=== PATIENT | female | born 1940 | race Hispanic/Latino ===

== ENCOUNTER 2019-06-04 19:49 | Emergency (ER) | payer MEDICARE ==
[~2019-06-04 19:49] MED LIST: DONE5TAB33 PO; FOLI0.4T2 PO; GLIP5TAB11 PO; LISI40TA4 PO; METF-444 PO; NAPR220T57 PO; SIMV40TA59 PO; VALS160T29 PO
[2019-06-04 22:01] LABS: BASOPHILS % (AUTO) 0.6 % (0.0-5.0); EOSINOPHILS % (AUTO) 1.1 % (0.0-8.0); HEMATOCRIT 33.6 % (36-48); LYMPHOCYTES % (AUTO) 31.1 % (21.0-51.0); MEAN CORPUSCULAR HEMOGLOBIN 29.4 pg (27.0-33.0); MEAN CORPUSCULAR VOLUME 89.1 fL (79-99); MONOCYTES % (AUTO) 7.4 % (3.0-13.0); NEUTROPHILS % (AUTO) 59.5 % (40.0-77.0); PLATELET COUNT (AUTO) 267 K/uL (130-400); RED BLOOD CELL COUNT(AUTO) 3.77 MIL/uL (4.00-5.50); RED CELL DISTRIBUTION WIDTH 14.7 % (11.0-15.5); WHITE BLOOD COUNT (AUTO) 6.2 K/uL (4.8-10.8)
[2019-06-04 22:13] LABS: CREATININE 1.9 mg/dL (0.5-1.5); POTASSIUM 5.4 mmol/L (3.5-5.1)
[2019-06-04 22:17] LABS: ALBUMIN 3.5 g/dL (3.5-5.0); BILIRUBIN,TOTAL 0.3 mg/dL (0.2-1.0); TOTAL PROTEIN, SERUM 7.1 g/dL (6.0-8.3)
[2019-06-04 22:51] LABS: APPEARANCE,URINE Clear (CLEAR); BILIRUBIN,URINE Negative (NEGATIVE); COLOR,URINE Yellow (YELLOW); GLUCOSE, URINE (UA) >=1000 mg/dL (NEGATIVE); KETONES,URINE Negative (NEGATIVE); LEUKOCYTE ESTERASE ,URINE Small (NEGATIVE); NITRATE,URINE Negative (NEGATIVE); OCCULT BLOOD,URINE Negative (NEGATIVE); PROTEIN,URINE Negative (NEGATIVE); UROBILINOGEN,URINE 0.2 mg/dL (0.2-1.0)
[2019-06-04 23:06] LABS: BACTERIA,URINE Few /HPF (None Seen); MUCUS,URINE Moderate LPF (None Seen); RBC,URINE 0-1 /HPF (0-1); SQUAMOUS EPITHELIAL CELL,UR Moderate /HPF (0-2)
== END 2019-06-05 02:08 | disposition home or self-care (01) ==
LOC: EDH 19:49
DX: K85.90 Acute pancreatitis without necrosis or infection, unspecified (principal); R51 Headache; N39.0 Urinary tract infection, site not specified; I10 Essential (primary) hypertension; E11.9 Type 2 diabetes mellitus without complications; J45.909 Unspecified asthma, uncomplicated; Z87.891 Personal history of nicotine dependence
CPT/HCPCS: 36415; 70450; 80053; 81001; 82550; 83690; 84484; 85025; 93005

== ENCOUNTER 2019-07-04 19:30 | Emergency (ER) | payer MEDICARE ==
[2019-07-04] MEDS ORDERED: ONDANSETRON HCL 4 MG/2 ML VIAL ONE (19:46)
[2019-07-04] MEDS ORDERED: SODIUM CHLORIDE 0.9% 1000ML 1,000 ML IV ONE (19:46)
[2019-07-04 19:53] LABS: BASOPHILS % (AUTO) 0.6 % (0.0-5.0); EOSINOPHILS % (AUTO) 0.7 % (0.0-8.0); HEMATOCRIT 30.7 % (36-48); LYMPHOCYTES % (AUTO) 29.5 % (21.0-51.0); MEAN CORPUSCULAR HEMOGLOBIN 29.8 pg (27.0-33.0); MEAN CORPUSCULAR HGB CONC 31.9 g/dL (32.0-36.0); MEAN CORPUSCULAR VOLUME 93.3 fL (79-99); NEUTROPHILS % (AUTO) 60.5 % (40.0-77.0); PLATELET COUNT (AUTO) 259 K/uL (130-400); RED BLOOD CELL COUNT(AUTO) 3.29 MIL/uL (4.00-5.50); RED CELL DISTRIBUTION WIDTH 14.8 % (11.0-15.5); WHITE BLOOD COUNT (AUTO) 7.3 K/uL (4.8-10.8)
[2019-07-04 20:07] LABS: CREATININE 2.2 mg/dL (0.5-1.5); POTASSIUM 4.8 mmol/L (3.5-5.1)
[2019-07-04 20:12] LABS: ALBUMIN 3.1 g/dL (3.5-5.0); BILIRUBIN,TOTAL 0.2 mg/dL (0.2-1.0); TOTAL PROTEIN, SERUM 6.5 g/dL (6.0-8.3)
[2019-07-04 22:33] LABS: APPEARANCE,URINE Cloudy (CLEAR); BILIRUBIN,URINE Negative (NEGATIVE); COLOR,URINE Yellow (YELLOW); GLUCOSE, URINE (UA) >=1000 mg/dL (NEGATIVE); KETONES,URINE Negative (NEGATIVE); LEUKOCYTE ESTERASE ,URINE Trace (NEGATIVE); NITRATE,URINE Negative (NEGATIVE); OCCULT BLOOD,URINE Negative (NEGATIVE); PROTEIN,URINE Negative (NEGATIVE); UROBILINOGEN,URINE 0.2 mg/dL (0.2-1.0)
[2019-07-04 22:46] LABS: AMORPHOUS SEDIMENT,UR Few /LPF (None Seen); BACTERIA,URINE None Seen /HPF (None Seen); RBC,URINE None Seen /HPF (0-1); SQUAMOUS EPITHELIAL CELL,UR Rare /HPF (0-2); WBC,URINE 0-1 /HPF (0-1); YEAST,URINE BUDDING Few /HPF (None Seen)
== END 2019-07-05 00:36 | disposition home or self-care (01) ==
LOC: EDH 19:30
DX: K52.9 Noninfective gastroenteritis and colitis, unspecified (principal); K57.30 Diverticulosis of large intestine without perforation or abscess without bleeding; E11.22 Type 2 diabetes mellitus with diabetic chronic kidney disease; I12.9 Hypertensive chronic kidney disease with stage 1 through stage 4 chronic kidney disease, or unspecified chronic kidney disease; N18.9 Chronic kidney disease, unspecified; F03.90 Unspecified dementia, unspecified severity, without behavioral disturbance, psychotic disturbance, mood disturbance, and anxiety; J45.909 Unspecified asthma, uncomplicated; Z90.710 Acquired absence of both cervix and uterus; Z87.891 Personal history of nicotine dependence
CPT/HCPCS: 36415; 74176; 80053; 81001; 82550; 84484; 85025; 93005; 96361; 96374; 99285; J2405; J7030

== ENCOUNTER 2019-08-06 20:20 | Emergency (ER) | payer MEDICARE ==
[2019-08-06] MEDS ORDERED: ACETAMINOPHEN EXTRA STRENGTH 500 MG TABLET ONE (20:39)
[2019-08-06 21:08] LABS: BASOPHILS % (AUTO) 0.5 % (0.0-5.0); EOSINOPHILS % (AUTO) 0.2 % (0.0-8.0); HEMATOCRIT 32.8 % (36-48); MEAN CORPUSCULAR HEMOGLOBIN 30.6 pg (27.0-33.0); MEAN CORPUSCULAR HGB CONC 32.9 g/dL (32.0-36.0); MEAN CORPUSCULAR VOLUME 92.9 fL (79-99); MONOCYTES % (AUTO) 6.1 % (3.0-13.0); NEUTROPHILS % (AUTO) 78.5 % (40.0-77.0); PLATELET COUNT (AUTO) 294 K/uL (130-400); RED BLOOD CELL COUNT(AUTO) 3.53 MIL/uL (4.00-5.50); WHITE BLOOD COUNT (AUTO) 8.3 K/uL (4.8-10.8)
[2019-08-06 21:25] LABS: CREATININE 2.3 mg/dL (0.5-1.5); POTASSIUM 4.9 mmol/L (3.5-5.1)
[2019-08-06 21:29] LABS: ALBUMIN 3.3 g/dL (3.5-5.0); BILIRUBIN,TOTAL 0.2 mg/dL (0.2-1.0); TOTAL PROTEIN, SERUM 6.7 g/dL (6.0-8.3)
[2019-08-06 21:44] LABS: INR 0.99 (0.85-1.15); PARTIAL THROMBOPLASTIN TIME 25.4 SEC (26.3-35.5); PROTHROMBIN TIME 10.7 SEC (9.6-11.6)
[2019-08-06] MEDS ORDERED: CEFTRIAXONE SODIUM 1 GM ONE (21:51)
[2019-08-06 22:49] LABS: APPEARANCE,URINE Clear (CLEAR); BILIRUBIN,URINE Negative (NEGATIVE); COLOR,URINE Yellow (YELLOW); GLUCOSE, URINE (UA) >=1000 mg/dL (NEGATIVE); KETONES,URINE Negative (NEGATIVE); LEUKOCYTE ESTERASE ,URINE Small (NEGATIVE); NITRATE,URINE Positive (NEGATIVE); OCCULT BLOOD,URINE Negative (NEGATIVE); PROTEIN,URINE Negative (NEGATIVE); UROBILINOGEN,URINE 0.2 mg/dL (0.2-1.0)
[2019-08-06 23:11] LABS: BACTERIA,URINE Many /HPF (None Seen); RBC,URINE 0-1 /HPF (0-1); YEAST,URINE BUDDING Moderate /HPF (None Seen)
== END 2019-08-06 22:48 | disposition home or self-care (01) ==
LOC: EDH 20:20
DX: N39.0 Urinary tract infection, site not specified (principal); N28.9 Disorder of kidney and ureter, unspecified; E86.0 Dehydration; D63.1 Anemia in chronic kidney disease; E11.9 Type 2 diabetes mellitus without complications; I10 Essential (primary) hypertension; J45.909 Unspecified asthma, uncomplicated; Z90.49 Acquired absence of other specified parts of digestive tract; Z90.710 Acquired absence of both cervix and uterus
CPT/HCPCS: 36415; 71045; 74176; 80053; 81001; 82150; 82550; 83605; 83690; 84484; 85025; 85610; 85730; 87040 ×2; 87077; 87088; 87186; 87804 ×2; 93005; 96361; 96374; 99285; J0696